=== PATIENT | female | born 1950 | race Native Hawaiian/Other Pacific Islander ===

== ENCOUNTER 2017-12-02 07:43 | Outpatient (CLI) | payer MEDICARE, OTHER | END 2017-12-02 07:44 | disposition home or self-care (01) | LOC: DI 07:43 | PROVIDERS: ATTEND Family Medicine | DX: R00.2 Palpitations (principal); I49.3 Ventricular premature depolarization; I51.9 Heart disease, unspecified | CPT/HCPCS: 93306 ==

== ENCOUNTER 2019-01-21 22:49 | Emergency (ER) | payer MEDICARE, OTHER ==
[2019-01-21 22:56] VITALS: BP 163/78
--- NOTE | 2019-01-21 23:05 | ED Physician Documentation ---
PD HPI HEENT - Stated complaint Stated Complaint: NOSE BLEED,SORE THROAT,COUGH - Chief complaint Chief Complaint: Heent - History obtained from History obtained from: Patient - History of Present Illness Timing - onset: Yesterday Timing - duration: Days (2) Timing - details: Abrupt onset Location: Nose, Throat Associated symptoms: Congestion, Rhinorrhea. No: Fever Recently seen: Not recently seen - Additional information Additional information: This is a 68-year-old woman who presents with her complaints that she is had a cold with cough and sore throat starting yesterday morning. She took some Mucinex 12 hours symptoms and then tonight she had bleeding from the right nostril about an hour ago. It stopped after she held pressure on it but she got scared. She denies any pain in her nose and has had not been using nasal sprays. Denies ear pain, fever. She does feel slightly short of breath. Denies history of asthma. She is not on blood thinners. Review of Systems Constitutional: denies: Fever Ears: denies: Ear pain Nose: reports: Congestion, Epistaxis Throat: reports: Sore throat Respiratory: reports: Cough PD PAST MEDICAL HISTORY - Present Medications Home Medications: Ambulatory Orders Medication Instructions Recorded Confirmed Lisinopril 10 mg PO DAILY 01/21/19 01/21/19 Promethazine HCl/Codeine 5 ml PO Q6HR PRN #120 syrup 01/21/19 [Promethazine-Codeine Syrup] Simvastatin 20 mg PO DAILY 01/21/19 01/21/19 - Allergies Allergies/Adverse Reactions: Allergies Allergy/AdvReac Type Severity Reaction Status Date / Time No Known Drug Allergies Allergy Verified 01/21/19 22:56 PD ED PE NORMAL - Vitals Vital signs reviewed: Yes - General General: Alert and oriented X 3, No acute distress, Well developed/nourished - HEENT HEENT: Atraumatic, PERRL, Moist mucous membranes, Pharynx benign, Other (The nasal mucosa is very dry bilaterally. There is no active bleeding in the right nostril and I do not see a source of the blood.) - Neck Neck: Supple, no meningeal sign, No adenopathy, Thyroid normal - Cardiac Cardiac: RRR, No murmur - Respiratory Respiratory: No respiratory distress, Clear bilaterally - Abdomen Abdomen: Normal bowel sounds Results - Vitals Vitals: Vital Signs - 24 hr 01/21/19 22:53 Temperature 36.6 C Heart Rate 92 Respiratory 14 Rate Blood Pressure 163/78 H O2 Saturation 98 Oxygen O2 Source Room air PD MEDICAL DECISION MAKING - ED course Complexity details: d/w patient ED course: Patient's bleeding has actually stopped. Pursue any further management of the nosebleed at this time. She is instructed to hold pressure if it starts again. Ring recommended that she make sure she is not taking a decongestant medication and use nasal saline sprays to help moisturize her nasal mucosa. She is given a prescription for Phenergan with codeine for the cough. No indication for antibiotics at this time. Departure - Departure Disposition: 01 Home, Self Care Clinical Impression: Epistaxis URI (upper respiratory infection) Qualifiers: URI type: unspecified viral URI Qualified Code(s): J06.9 - Acute upper respiratory infection, unspecified Condition: Good Instructions: ED Nosebleed, ED Upper Resp Infec No Abx Tx Follow-Up: doctor,your [Other] Prescriptions: Promethazine HCl/Codeine [Promethazine-Codeine Syrup] 5 ml PO Q6HR PRN #120 syrup PRN Reason: Cough Comments: Use a saline nasal spray to keep the mucosa of your nose moisturized. Apply direct pressure if the bleeding recurs. Make sure you are not taking a d econgestant medication and the Mucinex your taking for your cold. May use the Phenergan with codeine cough syrup if needed for coughing. If your symptoms are not improving in 10 to 12 days or are worsening you should follow-up with your primary care provider for reevaluation.
[2019-01-21] MEDS ORDERED: guaiFENesin/CODEINE 5 ML UDC PO STA (23:34)
== END 2019-01-21 23:45 | disposition home or self-care (01) ==
LOC: ED 22:49
DX: J06.9 Acute upper respiratory infection, unspecified (principal); R04.0 Epistaxis
CPT/HCPCS: 99282; 99284; A9270

== ENCOUNTER 2019-08-28 14:27 | Outpatient (CLI) | payer MEDICARE, OTHER ==
--- NOTE | 2019-08-28 15:50 | Mammography Report ---
Reason: ROUTINE MAMMO Procedure Date: 08/28/2019 Accession Number: [id number] / [id number] Procedure: MGN - Screening Mammo w/Rod CPT Code: Final Report FULL RESULT: EXAM: Screening Mammo w/Rod DATE: 08/28/2019 3:08 PM CLINICAL HISTORY: Routine screening. Nulliparous patient. History of benign left breast biopsy. TECHNIQUE: (B) - Bilateral CC and MLO views were obtained. COMPARISON: 08/26/2018, 08/26/2017, 09/03/2016, 08/29/2015, 08/29/2014, 08/29/2013 and 08/25/2012. PARENCHYMAL PATTERN: (D) - The breasts demonstrate heterogeneously dense fibroglandular parenchyma bilaterally. FINDINGS: No significant interval change. There are no suspicious masses, calcifications, or areas of distortion. IMPRESSION: Negative examination. BI-RADS category 1. RECOMMENDATION: (ANNUAL) - Recommend routine annual screening mammography. BI-RADS CATEGORY: (1) - Negative. STANDARD QUALIFYING STATEMENTS: 1. This examination was not reviewed with the aid of Computer-Aided Detection (CAD). 2. A negative or benign imaging report should not preclude biopsy if clinically suspicious findings are present. 3. Dense breasts may obscure an underlying neoplasm. 4. This examination was reviewed with the aid of 3D breast imaging (tomosynthesis).
== END 2019-08-28 14:28 | disposition home or self-care (01) ==
LOC: DI.N 14:27
DX: Z12.31 Encounter for screening mammogram for malignant neoplasm of breast (principal)
CPT/HCPCS: 77063; 77067

== ENCOUNTER 2019-11-14 20:40 | Emergency (ER) | payer MEDICARE, OTHER ==
--- NOTE | 2019-11-14 20:50 | ED Physician Documentation ---
History of Present Illness - Stated complaint Stated Complaint: FAST HEART - Chief complaint Chief Complaint: Cardiac - History obtained from History obtained from: Patient (The patient is a 69-year-old female who presents tonightShe denies any chest pain or any history of pulmonary embolism or DVT feeling like she has a rapid heartbeat. She reports that she fell like her heart was racing in which she would like to be evaluated. She denies any syncopal episodes denies chest pain currently denies any recent surgeries or long travels or lower extremity or unilateral swelling.) Review of Systems Constitutional: reports: Reviewed and negative Eyes: reports: Reviewed and negative Ears: reports: Reviewed and negative Nose: reports: Reviewed and negative Throat: reports: Reviewed and negative Cardiac: reports: Palpitations Respiratory: reports: Reviewed and negative GI: reports: Reviewed and negative : reports: Reviewed and negative Skin: reports: Reviewed and negative Musculoskeletal: reports: Reviewed and negative Neurologic: reports: Reviewed and negative Psychiatric: reports: Reviewed and negative Endocrine: reports: Reviewed and negative Immunocompromised: reports: Reviewed and negative PD PAST MEDICAL HISTORY - Present Medications Home Medications: Ambulatory Orders Medication Instructions Recorded Confirmed Simvastatin 20 mg PO DAILY 01/21/19 11/14/19 lisinopriL [Lisinopril] 10 mg PO DAILY 01/21/19 11/14/19 - Allergies Allergies/Adverse Reactions: Allergies Allergy/AdvReac Type Severity Reaction Status Date / Time No Known Drug Allergies Allergy Verified 11/14/19 20:50 PD ED PE NORMAL - Vitals Vital signs reviewed: Yes - General General: Alert and oriented X 3, No acute distress, Well developed/nourished - HEENT HEENT: PERRL, Moist mucous membranes - Neck Neck: Supple, no meningeal sign - Cardiac Cardiac: RRR, No murmur, Strong equal pulses - Respiratory Respiratory: No respiratory distress, Clear bilaterally - Abdomen Abdomen: Normal bowel sounds, Soft, Non tender, Non distended, No organomegaly - Back Back: No CVA TTP, No spinal TTP - Derm Derm: Warm and dry, No rash - Extremities Extremities: No deformity, No tenderness to palpate, Normal ROM s pain, No edema, No calf tenderness / cord - Neuro Neuro: Alert and oriented X 3, clinical nurse reviewer 2-12 intact, No motor deficit, No sensory deficit, Normal speech - Psych Psych: Normal mood, Normal affect Results - Vitals Vitals: Vital Signs - 24 hr 11/14/19 11/14/19 11/14/19 20:49 21:33 23:27 Temperature 36.9 C Heart Rate 102 H 91 77 Respiratory 18 12 14 Rate Blood Pressure 181/90 H 133/83 H 147/82 H O2 Saturation 97 100 100 11/15/19 00:24 Temperature Heart Rate 86 Respiratory 18 Rate Blood Pressure 144/106 H O2 Saturation 100 Oxygen O2 Source Room air - EKG (time done) 20:43 Rate: Other (no stemi) - Labs Labs: Laboratory Tests 11/14/19 11/14/19 11/14/19 21:10 21:10 21:10 WBC 7.1 RBC 4.33 Hgb 13.1 Hct 39.0 MCV 90.1 MCH 30.3 MCHC 33.6 RDW 12.6 Plt Count 274 MPV 8.4 Neut # (Auto) 4.0 Lymph # (Auto) 2.4 [place] # (Auto) 0.5 Eos # (Auto) 0.2 Baso # (Auto) 0.0 Absolute Nucleated RBC 0.00 Nucleated RBC % 0.0 PT 11.0 INR 1.0 APTT 27.4 D-Dimer 238.5 Sodium 138 Potassium 3.7 Chloride 103 Carbon Dioxide 26 Anion Gap 9.0 BUN 21 H Creatinine 0.7 Estimated GFR (MDRD) 83 L Glucose 134 H Calcium 9.5 Total Bilirubin 0.5 AST 21 ALT 20 Alkaline Phosphatase 50 Troponin I High Sens B-Natriuretic Peptide Total Protein 7.7 Albumin 4.3 Globulin 3.4 Albumin/Globulin Ratio 1.3 Lipase 56 H TSH Ethyl Alcohol < 5.0 11/14/19 11/14/19 11/14/19 21:10 21:10 21:10 WBC RBC Hgb Hct MCV MCH MCHC RDW Plt Count MPV Neut # (Auto) Lymph # (Auto) [place] # (Auto) Eos # (Auto) Baso # (Auto) Absolute Nucleated RBC Nucleated RBC % PT INR APTT D-Dimer Sodium Potassium Chloride Carbon Dioxide Anion Gap BUN Creatinine Estimated GFR (MDRD) Glucose Calcium Total Bilirubin AST ALT Alkaline Phosphatase Troponin I High Sens 3.5 B-Natriuretic Peptide 17 Total Protein Albumin Globulin Albumin/Globulin Ratio Lipase TSH 4.43 Ethyl Alcohol PD MEDICAL DECISION MAKING - ED course Complexity details: considered differential (Patient's initial lab work and EKG are unremarkable she is asymptomatic currently given the fact that she was having palpitations with tachycardia a d-dimer was ordered which was mildly elevated subsequently CTA of the chest was ordered and shows no pulmonary embolism patient remains asymptomatic she has good follow-up this point the patient will be discharged home with close follow-up.) Departure - Departure Disposition: 01 Home, Self Care Clinical Impression: Palpitations Condition: Stable Instructions: ED Palpitations Follow-Up: your, doctor [Other] - 11/15/19 Comments: follow up with your doctor today for a follow up visit. Discharge Date/Time: 11/15/19 00:25
[2019-11-14 21:16] LABS: BASOPHILS % (AUTO) 0.6 %; EOSINOPHILS # (AUTO) 0.2 10^3/uL (0.0-0.7); EOSINOPHILS % (AUTO) 2.1 %; HGB - HEMOGLOBIN 13.1 g/dL (12.0-16.0); LYMPHOCYTES # (AUTO) 2.4 10^3/uL (1.5-3.5); LYMPHOCYTES % (AUTO) 33.2 %; MEAN CORPUSCULAR HEMOGLOBIN 30.3 pg (27.0-31.0); MEAN CORPUSCULAR HGB CONC 33.6 g/dL (32.0-36.0); MEAN CORPUSCULAR VOLUME 90.1 fL (81.0-99.0); MEAN PLATELET VOLUME 8.4 fL (7.9-10.8); MONOCYTES # (AUTO) 0.5 10^3/uL (0.0-1.0); MONOCYTES % (AUTO) 7.2 %; NEUTROPHILS % (AUTO) 56.6 %; PLT - PLATELET COUNT 274 10^3/uL (130-450); RED BLOOD COUNT 4.33 10^6/uL (4.20-5.40); RED CELL DISTRIBUTION WIDTH 12.6 % (12.0-15.0); WHITE BLOOD COUNT 7.1 x10^3/uL (4.8-10.8)
[2019-11-14 21:28] LABS: D-DIMER 238.5 ng/mL (200.0-255.0)
[2019-11-14 21:31] LABS: ALBUMIN 4.3 g/dL (3.2-5.5); ALBUMIN/GLOBULIN RATIO 1.3 (1.0-2.2); ALKALINE PHOSPHATASE 50 IU/L (42-121); ALT ALANINE AMINOTRANSFERASE 20 IU/L (10-60); AST ASPARTATE AMINOTRANSFERASE 21 IU/L (10-42); BILIRUBIN,TOTAL 0.5 mg/dL (0.2-1.0); BUN - BLOOD UREA NITROGEN 21 mg/dL (6-20); CALCIUM 9.5 mg/dL (8.5-10.3); CARBON DIOXIDE - CO2 26 mmol/L (21-32); CHLORIDE 103 mmol/L (101-111); CREATININE 0.7 mg/dL (0.4-1.0); GLUCOSE 134 mg/dL (70-100); LIPASE 56 U/L (22-51); SODIUM 138 mmol/L (135-145); TOTAL PROTEIN 7.7 g/dL (6.7-8.2)
[2019-11-14 21:36] LABS: PARTIAL THROMBOPLASTIN TIME 27.4 secs (24.9-33.3)
--- NOTE | 2019-11-14 21:57 | XRAY Report ---
Reason: cp Procedure Date: 11/14/2019 Accession Number: [id number] / [id number] Procedure: XR - Chest 1 View X-Ray CPT Code: 16842 Final Report FULL RESULT: PROCEDURE: Chest 1 View X-Ray INDICATIONS: Chest pain TECHNIQUE: One view of the chest was acquired. COMPARISON: None FINDINGS: Surgical changes and devices: None. Lungs and pleura: No pleural effusions or pneumothorax. Lungs are clear. Mediastinum: Mediastinal contours appear normal. Heart size is normal. Bones and chest wall: No suspicious bony lesions. Overlying soft tissues appear unremarkable. IMPRESSION: No evidence acute pulmonary process. Reviewed by: Denver Hernandez MD on 11/14/2019 9:56 PM PDT Approved by: Denver Hernandez MD on 11/14/2019 9:56 PM PDT Station ID: [id number]
[2019-11-14] MEDS ORDERED: SODIUM CHLORIDE 0.9% 1,000 ML IV STA (22:35)
[2019-11-14] MEDS ORDERED: IOVERSOL 320 100 ML VIAL IVP ONE ×2 (22:45→23:41)
[2019-11-15 00:25] VITALS: BP 144/106
--- NOTE | 2019-11-15 09:00 | CT Report ---
Reason: CP, TACHYCARDIA, ELEVATED D DIMER Procedure Date: 11/14/2019 Accession Number: [id number] / [id number] Procedure: CT - ANGIO CHEST W/WO CPT Code: Final Report FULL RESULT: PROCEDURE: ANGIO CHEST W/WO INDICATIONS: CP, TACHYCARDIA, ELEVATED D DIMER CONTRAST: IV CONTRAST: Optiray 320 ml: 80 PO CONTRAST: *NO PO CONTRAST TECHNIQUE: After the administration of intravenous contrast, 2 mm thick sections acquired from the pulmonary apices to the posterior costophrenic angles. 3-dimensional maximum intensity projection (MIP) coronal and sagittal reformats were then acquired through the thorax. For radiation dose reduction, the following was used: automated exposure control, adjustment of mA and/or kV according to patient size. COMPARISON: None FINDINGS: Image quality: Excellent. Pulmonary arteries: Pulmonary arteries are normal in size, and demonstrate no intraluminal filling defects to suggest central pulmonary embolism. Lungs and pleura: Lungs are clear. Calcified granuloma with adjacent ill-defined pulmonary parenchymal density measuring approximately 8 mm in diameter, left upper lobe. Reference image 90/7. No other pulmonary nodules. No pleural effusions or pneumothorax. Central and peripheral airways are patent. Mediastinum: Heart size is normal, without pericardial effusion. Coronary artery calcifications. No mediastinal or hilar adenopathy. Thoracic aorta is normal in caliber and enhancement. Moderate hiatal hernia. Bones and chest wall: No suspicious bony lesions. Ribs and thoracic spine appear intact throughout. The thyroid is normal. No axillary or supraclavicular adenopathy. Abdomen: Visualized upper abdominal solid organs appear normal in the early arterial phase of enhancement. IMPRESSION: 1. No evidence pulmonary emboli. 2. Moderate hiatal hernia. 3. Calcified granuloma, left upper lobe. 4. There is ill-defined density adjacent to the calcification in the left upper lobe, measuring approximately 8 mm. 5. Coronary artery disease. A preliminary report with the above findings was provided at the time of the study by [facility]. Comment: Would recommend 6 month follow-up CT of the chest to reevaluate the ill-defined density adjacent to the left upper lobe granuloma. Findings were discussed by phone with the patient at the time of final interpretation, emphasizing the suggestion for follow-up imaging in 6 months. Reviewed by: Denver Hernandez MD on 11/15/2019 8:58 AM PDT Approved by: Denver Hernandez MD on 11/15/2019 8:58 AM PDT Station ID: [id number]
== END 2019-11-15 00:25 | disposition home or self-care (01) ==
LOC: ED 20:40
DX: R00.2 Palpitations (principal); R79.1 Abnormal coagulation profile
CPT/HCPCS: 36415; 71045; 71275; 80053; 83690; 83880; 84443; 84484; 85025; 85379; 85610; 85730; 93005; 96360; 99283; 99284; Q9967; 80320

== ENCOUNTER 2020-08-26 09:07 | Outpatient (CLI) | payer MEDICARE, OTHER ==
--- NOTE | 2020-08-27 12:50 | Mammography Report ---
BILATERAL DIGITAL SCREENING MAMMOGRAM 3D/2D: 08/26/2020 CLINICAL: Routine screening. Comparison is made to exams dated: 08/28/2019 mammogram - [facility] and 08/26/2018 mammogram - [facility]. The tissue of both breasts is heterogeneously dense. This may lower the sensitivity of mammography. No significant masses, calcifications, or other findings are seen in either breast. There has been no significant interval change. IMPRESSION: NEGATIVE There is no mammographic evidence of malignancy. A 1 year screening mammogram is recommended. This exam was interpreted at Station ID: [id number]. NOTE: For mammograms, a report in lay terms will be sent to the patient. Approximately 15% of breast malignancies will not be visualized mammographically. In the management of a palpable breast mass, a negative mammogram must not discourage biopsy of a clinically suspicious lesion. Electronically Signed By: Mona croft/penrad:08/26/2020 10:32:00 ACR BI-RADS Category 1: Negative 3341F PARENCHYMAL PATTERN: (D) - The breast(s) demonstrate(s) heterogeneously dense fibroglandular jesus felix. BI-RADS CATEGORY: (1) - 1 RECOMMENDATION: (ANNUAL) - Recommend routine annual screening mammography. [id number] 1 year screening LATERALITY: (B)
== END 2020-08-26 09:08 | disposition home or self-care (01) ==
LOC: DI.N 09:07
DX: Z12.31 Encounter for screening mammogram for malignant neoplasm of breast (principal)

== ENCOUNTER 2021-03-10 08:00 | Outpatient (CLI) | payer MEDICARE, OTHER | END 2021-03-10 23:59 | disposition home or self-care (01) | LOC: LAB.N 08:00 | PROVIDERS: ATTEND Physician Assistant Medical | DX: N30.00 Acute cystitis without hematuria (principal) | CPT/HCPCS: 87086; 87181 ==

== ENCOUNTER 2021-04-04 15:55 | Outpatient (CLI) | payer MEDICARE, OTHER ==
--- NOTE | 2021-04-04 18:19 | XRAY Report ---
PROCEDURE: Hips 2V BILAT INDICATIONS: BILATERAL HIP PAIN TECHNIQUE: AP and frog-leg lateral views of the bilateral hip were acquired. COMPARISON: None FINDINGS: Bones: No acute fractures or dislocations. Degenerative changes of the bilateral hip joints. No mary picious bony lesions. The visualized pelvic ring appears intact. Soft tissues: No suspicious soft tissue calcifications or masses. IMPRESSION: Bilateral hip without acute fracture or dislocation. Bilateral hip osteoarthrosis. Reviewed by: Vasyl Xie MD on 04/04/2021 6:18 PM PDT Approved by: Vasyl Xie MD on 04/04/2021 6:18 PM PDT Station ID: [id number]
== END 2021-04-04 23:59 ==
LOC: DI.N 15:55
PROVIDERS: ATTEND Family Medicine
DX: M16.0 Bilateral primary osteoarthritis of hip (principal)

== ENCOUNTER 2021-05-15 08:59 | Outpatient (CLI) | payer MEDICARE, OTHER ==
--- NOTE | 2021-05-15 11:39 | XRAY Report ---
PROCEDURE: Pelvis 1 View INDICATIONS: BILATERAL HIP PX TECHNIQUE: Single view of the pelvis COMPARISON: None. FINDINGS: Mild lumbar spondylosis and facet disease. Scattered subchondral sclerosis and spurring. No definite joint space narrowing. There is anatomic alignment. Soft tissues grossly unremarkable. IMPRESSION: Mild degenerative changes. If the patient's pain or other symptoms persist, consider further evaluati on with MRI. Reviewed by: Darren Sullivan MD on 05/15/2021 11:38 AM PST Approved by: Darren Sullivan MD on 05/15/2021 11:38 AM PST Station ID: [id number]
== END 2021-05-15 23:59 | disposition home or self-care (01) ==
LOC: DI.N 08:59
PROVIDERS: ATTEND Physician Assistant
DX: M16.0 Bilateral primary osteoarthritis of hip (principal); M47.816 Spondylosis without myelopathy or radiculopathy, lumbar region

== ENCOUNTER 2021-07-28 07:54 | Outpatient (CLI) | payer MEDICARE, OTHER ==
--- NOTE | 2021-07-28 13:07 | XRAY Report ---
PROCEDURE: Shoulder 3 View LT INDICATIONS: LEFT SHOULDER PAIN TECHNIQUE: 4 views of the left shoulder with single AP view of the right shoulder were acquired. COMPARISON: None. FINDINGS: Bones: No acute fractures or dislocations. No suspicious bony lesions. Visualized ribs appear inta ct. There are degenerative changes of the lateral acromioclavicular joints. Coracoclavicular and acr omioclavicular intervals are maintained. However, there is asymmetric widening of the left acromiocla vicular joint relative to the right. It still measures within normal limits. There are also mild dege nerative changes of the left glenohumeral joint. Soft tissues: No suspicious soft tissue calcifications. IMPRESSION: No acute fractures. 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 Mild asymmetric widening of the left acromioclavicular joint relative to the right; however, it st ill measures within normal limits. Consider further evaluation of the acromioclavicular joints with a nd without weights if there is clinical concern for acromioclavicular joint separation. Mild left glenohumeral osteoarthrosis. Reviewed by: Vasyl Xie MD on 07/28/2021 1:06 PM PST Approved by: Vasyl Xie MD on 07/28/2021 1:06 PM PST Station ID: [id number]
== END 2021-07-28 07:55 | disposition home or self-care (01) ==
LOC: DI.WOS 07:54
PROVIDERS: ATTEND Physician Assistant
DX: S46.912A Strain of unspecified muscle, fascia and tendon at shoulder and upper arm level, left arm, initial encounter (principal); M19.012 Primary osteoarthritis, left shoulder

== ENCOUNTER 2021-10-22 08:00 | Outpatient (CLI) | payer MEDICARE, OTHER ==
--- NOTE | 2021-10-22 08:48 | XRAY Report ---
PROCEDURE: Chest 2 View X-Ray INDICATIONS: COUGH TECHNIQUE: 2 view(s) of the chest. COMPARISON: November 14, 2019 FINDINGS: SUPPORT DEVICES: None. LUNGS/PLEURA: No focal consolidation, pleural effusion or space-occupying pneumothorax. MEDIASTINUM: The cardiac silhouette is within normal limits. Retrocardiac density, compatible previo usly demonstrated hiatal hernia. BONES/SOFT TISSUES: No acute abnormality. IMPRESSION: 1.No acute cardiopulmonary abnormality. Reviewed by: Rodrigo Ramírez MD on 10/22/2021 8:47 AM PDT Approved by: Rodrgio Ramírez MD on 10/22/2021 8:47 AM PDT Station ID: [id number]
== END 2021-10-22 23:59 | disposition home or self-care (01) ==
LOC: DI.N 08:00
PROVIDERS: ATTEND Registered Nurse
DX: R05.9 Cough, unspecified (principal)

== ENCOUNTER 2022-09-29 08:00 | Outpatient (CLI) | payer MEDICARE, OTHER | END 2022-09-29 23:59 | disposition home or self-care (01) | LOC: LAB.N 08:00 | PROVIDERS: ATTEND Registered Nurse | DX: R05.9 Cough, unspecified (principal); Z20.822 Contact with and (suspected) exposure to COVID-19 ==

== ENCOUNTER 2022-11-16 07:15 | Outpatient (CLI) | payer MEDICARE, OTHER ==
--- NOTE | 2022-11-16 12:08 | XRAY Report ---
PROCEDURE: Chest 2 View X-Ray INDICATIONS: COUGH TECHNIQUE: 2 views of the chest were acquired. COMPARISON: None. FINDINGS: Surgical changes and devices: None. Lungs and pleura: No dense consolidations. Mild thickening of the interstitial markings. No pleural effusion or pneumothorax. Mediastinum: Heart and mediastinal contour are normal. Atherosclerotic aortic arch. Moderate size hi atal hernia. Mild cephalization of central vessels. Bones and chest wall: No suspicious bony lesions. Overlying soft tissues appear unremarkable. IMPRESSION: 1. Diffuse interstitial thickening with cephalization of central vessels may indicate mild interstiti al and central vascular congestion/edema, though no pleural effusions are found. 2. Interstitial or pneumonitis may also have this appearance. 3. Moderate-sized hiatal hernia. Reviewed by: Mona Gamino MD on 11/16/2022 12:07 PM PDT Approved by: Mona Gamino MD on 11/16/2022 12:07 PM PDT Station ID: [id number]
== END 2022-11-16 07:30 | disposition home or self-care (01) ==
LOC: DI.N 07:15
PROVIDERS: ATTEND Physician Assistant Medical
DX: R05.9 Cough, unspecified (principal); R06.2 Wheezing; K44.9 Diaphragmatic hernia without obstruction or gangrene

== ENCOUNTER 2023-05-04 08:00 | Outpatient (CLI) | payer MEDICARE, OTHER ==
--- NOTE | 2023-05-04 11:11 | XRAY Report ---
PROCEDURE: Cervical Spine 2 View INDICATIONS: CERVICAL SPASM/ TENSION HEADACHE TECHNIQUE: 3 view(s) of the cervical spine were acquired. COMPARISON: None. FINDINGS: Bones: No fractures or dislocations to the T1 level. The lateral masses of C1 appear intact on the odontoid view. No suspicious bony lesions. Mild disc height loss at C4-5, C5-6, C6-7. Mild facet ar throsis at C2-3, C3-4, C4-5. Soft tissues: No prevertebral soft tissue swelling. IMPRESSION: Mild, multilevel degenerative disc disease and facet arthrosis. Reviewed by: Fredy Bateman on 05/04/2023 11:10 AM [facility] Approved by: Fredy Bateman on 05/04/2023 11:10 AM PST Station ID: [id number]
== END 2023-05-04 08:15 | disposition home or self-care (01) ==
LOC: DI.N 08:00
PROVIDERS: ATTEND Family Medicine
DX: M47.812 Spondylosis without myelopathy or radiculopathy, cervical region (principal); M50.321 Other cervical disc degeneration at C4-C5 level

== ENCOUNTER 2023-10-07 07:06 | Outpatient (CLI) | payer MEDICARE, OTHER ==
--- NOTE | 2023-10-07 09:33 | Mammography Report ---
UNILATERAL LEFT DIGITAL DIAGNOSTIC MAMMOGRAM 3D/2D WITH SPOT COMPRESSION: 10/07/2023 CLINICAL: Patient returns for additional imaging over a suspected mass in the left breast. Comparison is made to exams dated: 09/02/2023 mammogram, 09/01/2022 mammogram - [facility], 08/26/2020 mammogr am, 08/28/2019 mammogram - [facility], and 08/26/2018 mammogram - [facility]. The left breast is heterogeneously dense, which may obscure small masses (category c / 51-75% glandul ar tissue). There is an asymmetry in the left breast posterior depth medial region seen on the craniocaudal view only. This is less prominent. No other significant masses or calcifications are seen in the breast. IMPRESSION: INCOMPLETE: NEEDS ADDITIONAL IMAGING EVALUATION The asymmetry in the left breast is indeterminate. An ultrasound is recommended. Based on the Tyrer Cuzick model (a risk assessment model) the patient's lifetime risk is 6.0% and her 10 year risk is 5.4%. According to the ACR, ACS, and NCCN guidelines, an annual breast MRI exam kleber g with mammogram is recommended if the patient's lifetime risk is 20% or greater. This exam was interpreted at Station ID: [id number]. NOTE: For mammograms, a report in lay terms will be sent to the patient. Approximately 15% of breast malignancies will not be visualized mammographically. In the management of a palpable breast mass, a negative mammogram must not discourage biopsy of a clinically suspicious lesion. Electronically Signed By: Leonidas Martinez M.D. lc/:10/07/2023 08:50:33 ACR BI-RADS Category 0: Incomplete 3340F PARENCHYMAL PATTERN: (D) - The breast(s) demonstrate(s) heterogeneously dense fibroglandular parenchy ma. BI-RADS CATEGORY: (0) - 0 Ultrasound [id number] Immediate follow-up LATERALITY: (B)
--- NOTE | 2023-10-07 09:33 | Ultrasound Report ---
LIMITED ULTRASOUND OF LEFT BREAST: 10/07/2023 CLINICAL: Patient returns today to evaluate a focal asymmetry in the left breast. Comparison is made to exams dated: 10/07/2023 mammogram - [facility], 09/02/2023 [facility] mogram, 09/01/2022 mammogram - [facility], 08/26/2020 mammogram, 08/28/2019 mammogram - [facility], and 08/26/2018 mammogram - [facility]. Ultrasound of the left breast 8-11 o'clock region was performed. Fraser scale images of the real-time examination were reviewed. No sonographic finding in the medial breast. IMPRESSION: PROBABLY BENIGN There is no abnormality seen in the left breast to correspond with the mammography finding in the inn er aspect. A follow-up mammogram in 6 months is recommended to demonstrate stability. This exam was interpreted at Station ID: [id number]. Electronically Signed By: Leonidas Martinez M.D. lc/:10/07/2023 08:51:50 Ultrasound BI-RADS: 3 Probably benign BI-RADS CATEGORY: (3) - 3 Mammogram [id number] 6 month follow-up LATERALITY: (B)
== END 2023-10-07 07:07 | disposition home or self-care (01) ==
LOC: DI 07:06
PROVIDERS: ATTEND Nurse Practitioner Family
DX: R92.8 Other abnormal and inconclusive findings on diagnostic imaging of breast (principal); R92.332 Mammographic heterogeneous density, left breast